=== PATIENT | male | born 1985 | race Two or more races ===

== ENCOUNTER 2023-08-27 16:44 | Inpatient (IN) | payer OTHER, SELFPAY ==
[2023-08-27 17:13] VITALS: BP 115/84; PULSE 59; RESP 17; TEMP 36.3; O2SAT 97
[2023-08-27 17:14] VITALS: BMI 28.8
--- NOTE | 2023-08-27 17:39 | P.CONHOSP_ITS ---
History of Present Illness Data of Consult Service Date: 08/27/23 Requesting physician: Sunil Hu Primary Care Provider: Henna Rodriguez MD HPI Reason for consult: medical H&P 38 year old male with history of htn, asthma, chronic low back pain, polysubstance abuse admitted to adult psychiatry from [facility] ED with consult placed to hospitalist service for medical H&P. The patient is reporting an infection in the R nare. This was not diagnosed by a provider but he feels there is an infection. No pain or draiange. No sinus pain, ST, fevers, cough. Urine drug screen positive for opiates, cocaine, and THC though denies any IV use. Also denies any inhaled use. CBC WNL. BMP and heptic function wnl. EKG showed NSR, rate 65, no st/t wave abnormality. He has no other complaints. [facility] Medical History (Updated 08/27/23 @ 18:26 by LOR Florez) Chronic low back pain Polysubstance abuse Hypertension Asthma Social History Advance Directives: No Advance Directives Information Provided: No Meds Allergies Allergy/AdvReac Type Severity Reaction Status Date / Time No Known Allergies Allergy Verified 08/27/23 17:13 Active Medications: Current Medications Acetaminophen (Acetaminophen 325 Mg Tablet) 650 mg PO Q6H PRN PRN Reason: Headache/Pain Mild Scale (1-3) Al Hydroxide/Mg Hydroxide (Magnesium Hydrox/Alum Hydrox 30 Ml Oral.Susp) 30 ml PO Q6H PRN PRN Reason: Heartburn/Nausea Hydroxyzine HCl (Hydroxyzine Hcl 25 Mg Tablet) 25 mg PO Q6H PRN PRN Reason: Anxiety Magnesium Hydroxide (Milk Of Magnesia 30 Ml Oral.Susp) 30 ml PO DAILY PRN PRN Reason: Constipation Nicotine (Nicotine 21 Mg Patch.Td24) 21 mg TRANSDERMA DAILY PRN PRN Reason: smoking cessation Nicotine Polacrilex (Nicotine Polacrilex 2 Mg Gum) 4 mg BUCCAL Q2H PRN PRN Reason: Nicotine Cravings Olanzapine (Olanzapine 5 Mg Tablet) 5 mg PO TID PRN PRN Reason: agitation Trazodone HCl (Trazodone Hcl 50 Mg Tablet) 50 mg PO BEDTIME MRX1 PRN PRN Reason: Insomnia Physical Exam Vital Signs and Narrative: Vital Signs: Last Vital Signs Temp 97.3 F 08/27/23 17:13 Pulse 59 08/27/23 17:13 Resp 17 08/27/23 17:13 BP 115/84 08/27/23 17:13 Pulse Ox 97 08/27/23 17:13 O2 Del Method Room Air 08/27/23 17:13 BMI result Body Mass Index 28.8 Constitutional - Awake and Alert, No apparent distress Eyes - PERRLA, EOMI Nose - nasal septum deviation. L nare with inflamed turbinates without erythema or drainage Cardiovascular - S1S2, RRR, No edema Respiratory - Normal lung expansion, Normal respiratory effort, No respiratory distress, CTA bilaterally Gastrointestinal - NT / ND; +BS; No rebound or guarding Extremities - no calf tenderness bilaterally, no swelling Musculoskeletal - Normal inspection, normal ROM Skin - Warm/Dry Neurological - Alert & oriented x3, CN II-XII in tact, 5/5 strength BUE and BLE Psychological - Appropriate affect Assessment and Plan (1) Routine medical exam: Status: Acute Plan 38 year old male with history of htn, asthma, chronic low back pain, p olysubstance abuse admitted to adult psychiatry from [facility] ED with consult placed to hospitalist service for medical H&P. #Mood disorder -plan per psychiatry #Mild intermittent asthma -no exacerbation, albuterol prn -Nasal congestion/septal deviation -saline nasal spray, outpt follow up with pcp/ENT (causing loud breathing and suspect snoring) #chronic low back pain -continue gabapentin -tylenol, lidocaine patches #HTN -does not appear pt is currently taking any antihypertensives on review of claim history. Blood pressures well controlled -monitor blood pressures Thank you for allowing me to participate in this consult. Signing off at this time. Please do not hesitate to call for further questions or for any acute medical issues
--- NOTE | 2023-08-27 17:48 | PC.ADMIT ---
Addendum entered by Lauren Rangel RN 08/27/23 18:43: Tox screen positive for opiates, THC, cocaine, methadone, and fentanyl and hospitalist consult completed. Original Note: Pt admitted to from [facility] ED on a CV for SI with intent. Pt has a history of MDD, opioid use disorder, and Bipolar dz. He was evaluated by [facility] reporting he was feeling suicidal but did not disclose plan. He recently broke up with his girlfriend and is now homeless. Affect is flat, he is calm, and cooperative with admission process. Skin check and safety search performed by 2 RN's and unremarkable. Pt denies SI/HI/AVH at present. After he was oriented to the unit and signed releases he opted to go to his room and take a nap. He is primarily [place] speaking but was able to understand what was told to him. 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 Pt received his daily medications, including his daily Methadone 70 mg while at [place] this afternoon. Hospitalist consult ordered and gaetano texted non destructive testing supervisor provider.
[2023-08-27] MEDS: Nicotine Polacrilex 2 MG GUM 4 MG BUCCAL (18:52)
[2023-08-27] MEDS: hydrOXYzine HCL 25 MG TABLET PO (18:52)
[2023-08-27 20:00] VITALS: BP 97/55; PULSE 66; TEMP 37.1; O2SAT 95
[2023-08-28 09:09] VITALS: BP 135/87; PULSE 71; RESP 18; TEMP 36.6; O2SAT 98
[2023-08-28 09:29] LABS: Alanine Aminotransferase 29 U/L (0-40); Albumin Level 4.4 g/dL (3.5-5.0); Alkaline Phosphatase 83 U/L (39-117); Anion Gap 13 (12-20); Aspartate Amino Transferase 18 U/L (5-37); Bilirubin Total 0.4 mg/dL (0.0-1.0); Blood Urea Nitrogen 13 mg/dL (9-16); Carbon Dioxide 28 mmol/L (22-29); Chloride 107 mmol/L (96-108); Cholesterol 144 mg/dL (<200); Creatinine Clr Calc Pharmacy 94.7; Estimated Average Glucose 105 mg/dL; Estimated Glomerular Filt Rate > 60; Glucose Fasting 110 mg/dL (60-99); HDL Cholesterol 35 mg/dL (>40); Hemoglobin A1c % 5.3 % (<6.0); LDL Cholesterol Calculated 89 mg/dL (<100); Sodium 144 mmol/L (135-145); Total Protein 7.2 g/dL (6.5-8.0); Triglycerides 103 mg/dL (<150)
--- NOTE | 2023-08-28 09:43 | HE.PHANOTE ---
Methadone Patient receives from [facility], . Per RAMBO Pat, pt receives 70mg, on 08/24/23 was given take home bottles to last until 08/29/23. Patient last took 08/27/23 at 0937, at [place].
[2023-08-28] MEDS: Escitalopram Oxalate 10 MG TABLET PO (09:50)
[2023-08-28] MEDS: methADONE HCl 20 MG/2 ML ORAL.CONC 70 MG PO (09:50)
[2023-08-28] MEDS: Gabapentin 400 MG CAPSULE 800 MG PO ×3 (09:50→21:35)
[2023-08-28] MEDS: Nicotine Polacrilex 2 MG GUM 4 MG BUCCAL ×2 (10:18→14:25)
--- NOTE | 2023-08-28 10:44 | P.HPPS_ITS ---
HPI Date of Service: 08/28/23 Chief Complaint: MDD Opioid use disorder Sources of Information: patient interviewed, chart reviewed and crisis/core team assessment reviewed HPI Subjective Notes: Meza Warning, Conditional Voluntary and 3 Day Healthcare Proxy: No Guardianship: No Medical Problems Affecting Mental Status: No Narrative: 38 yo male , history of bipolar disorder, polysubstance use disorder, presents to ER with SI, HI, AH, VH, Paranoia. Pt had a plan to run into traffic to suicide when he was not under the influcence of substances. Reports an increase in depressive sx, panic attacks, fearful others are following him. Reports sx started last week. Reports a 2 day relapse on cocaine, heroin, cannabis after being sober for 2 years. Possible precipitants include loss of a one year relationship where he was living with his partner. Pt reports his goals are to get a place to live, to have a ELECTROTYPER to assist him-reports a back injury by history, re-establish med regime and is willing to look at [facility] to help him obtain GED and a job. Pt believes symptoms increased due to current circumstances. Toxicology positive for opiates, fentanyl, benzodiazepines, methadone, cocaine, cannabis Past Psychiatric History: IP: Affirms OP: Affirms-LENORA Mcdaniels PCP: [facility] adult medicine Medical Evaluation Reviewed: Yes [facility] Medical History (Updated 08/28/23 @ 17:38 by Shirlene Ortega APRN) Polysubstance use disorder Bipolar disorder Chronic low back pain Polysubstance abuse Hypertension Asthma Family History: affirms Social History: Born in [place], raised by mother until age 4, then grandmother. Pt is the youngest of 5. He came to [place] in 1999. Pt reports no contact with family of origin. 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 Pt has applied for SSI ~3 years ago and currently has welfare. He is homeless, has 3 children 22,18,14 who are doing well. Legal: Hx A&B, incarceration [id number]~30 days for driving a motorcycle without a license. Substance History: Started at age 11. Attends [employer] 2 years until current admit Hx of treatment with [facility] 01/2022, [facility] 06/2021, [facility] 02/2022 and 06/2022 and [facility] 03/2022, and 07/2022 Trauma History: Affirms by father, mother, brothers, uncles and the trauma of losses Diagnostics Vital Signs (24Hr): Vital Signs - 24 hr 08/27/23 17:13 08/27/23 20:00 08/28/23 09:09 Temperature 97.3 F 98.8 F 97.8 F Pulse Rate 59 66 71 Respiratory Rate 17 18 Blood Pressure 115/84 97/55 L 135/87 Pulse Oximetry 97 95 98 Oxygen Delivery Method Room Air Room Air Room Air BMI result Body Mass Index 28.8 Labs 08/28/23 09:00 Labs: Laboratory Results - last 48 hr 08/28/23 09:00 Sodium 144 Potassium 4.0 Chloride 107 Carbon Dioxide 28 Anion Gap 13 BUN 13 Creatinine 1.07 Estim Creat Clear Calc 94.7 Estimated GFR > 60 Fasting Glucose 110 H Estimat Average Glucose 105 Hemoglobin A1c % 5.3 Calcium 10.0 Total Bilirubin 0.4 AST 18 ALT 29 Alkaline Phosphatase 83 Total Protein 7.2 Albumin 4.4 Triglycerides 103 Cholesterol 144 LDL Cholesterol, Calc 89 HDL Cholesterol 35 L Meds/Allergies Meds Home Medications ?Medication ?Instructions ?Recorded ?Confirmed ?Type albuterol sulfate 90 mcg/actuation 90 mcg inhalation 08/28/23 History aerosol inhaler (Ventolin HFA) escitalopram oxalate 10 mg tablet 1 mg PO DAILY 08/28/23 08/28/23 History gabapentin 800 mg tablet 800 mg PO TID 08/28/23 08/28/23 History melatonin 5 mg disintegrating 5 mg PO 08/28/23 History tablet methadone 10 mg/mL oral concentrate 70 mg PO DAILY 08/28/23 08/28/23 History montelukast 10 mg tablet 10 mg PO 08/28/23 History Allergies Allergies Allergy/AdvReac Type Severity Reaction Status Date / Time No Known Allergies Allergy Verified 08/27/23 17:13 Mental Status Exam Mental Status Exam Patient Appearance: Appropriate Patient Orientation: Person, Place, Time and Situation Level of Consciousness: Alert Patient Behavior: Talkative and Good Eye Contact Mood Description: Apprehensive Affect Description: Apprehensive Patient Cognition Impaired: No Ability to Follow Directions: Good Speech Pattern: Spontaneous Speech Memory Description: Intact Hallucinations: Auditory Delusions: Paranoid Ideation and Present Perceptual Disturbances: Depersonalization and Derealization Thought Process: Rumination Thought Content: positive for Perseveration, positive for Suicidal Ideation and positive for Homicidal Ideation Depressive Symptoms: Feelings of Worthlessness, Unhappiness and Back Pain Abnormal Motor Activity Signs and Symptoms: Restlessness Judgement: Fair Assessment & Plan Assessment & Plan (1) Bipolar disorder: Status: Acute Code(s): F31.9 - Bipolar disorder, unspecified (2) Polysubstance use disorder: Status: Acute Code(s): F19.90 - Other psychoactive substance use, unspecified, uncomplicated Plan 38 yo male with a history of bipolar disorder, polysubstance use disorder, PTSD. Pt presented with relapse of 2 days, SI, HI, AH, paranoia. Pt planning to run into traffic and did so without intoxication. Describes paranoia, feeling people are following him and panic. Plan: Admit, CV 15 minute checks Collateral contacts Pt asks to continue med regime [facility] consult Addiction consult Three day notice to 09/03/23. Patient educated on: therapeutic strategies Informed Consent: understands Reason for continued inpatient stay Substantial Risk for: rapid decompensation Statement Statement: I have reviewed the history and physical and performed a pertinent examination on my patient. No changes have occurred unless specified. If the History and Physical was not performed prior to admission, the Hospitalist's service will be consulted for completing the admission physical. Time Spent With Patient Time: Total time managing care of this patient today ____ minutes.
--- NOTE | 2023-08-28 12:13 | PC.NURSE ---
Pt signed 3-day, up on 09/02. , SW, UR aware
[2023-08-28] MEDS: hydrOXYzine HCL 25 MG TABLET PO ×2 (14:25→21:35)
[2023-08-28] MEDS: OLANZapine 5 MG TABLET PO ×2 (14:25→21:35)
[2023-08-28 20:00] VITALS: BP 134/82; PULSE 76; RESP 18; TEMP 37.3; O2SAT 97
[2023-08-28] MEDS: Montelukast Sodium 10 MG TABLET PO (21:35)
[2023-08-29] MEDS: Gabapentin 400 MG CAPSULE 800 MG PO ×3 (07:59→20:12)
[2023-08-29] MEDS: Escitalopram Oxalate 10 MG TABLET PO (07:59)
[2023-08-29 08:00] VITALS: BP 133/96; PULSE 76; RESP 18; TEMP 36.9; O2SAT 100
[2023-08-29] MEDS: methADONE HCl 20 MG/2 ML ORAL.CONC 70 MG PO (08:00)
[2023-08-29 10:07] VITALS: BMI 29.0
[2023-08-29] MEDS: Nicotine Polacrilex 2 MG GUM 4 MG BUCCAL ×2 (13:02→20:12)
--- NOTE | 2023-08-29 15:32 | P.PNPSI_ITS ---
Subjective Subjective Date of Service: 08/29/23 Reason For Visit: MDD Opioid use disorder Subjective Notes: Conditional Voluntary and 3 Day Healthcare Proxy: No Guardianship: No Medical Problems Affecting Mental Status: No Interim History: Pt reports he is doing well. Denies SI/HI/AH/VH/Paranoia Three day notice to 09/02 Asking for discharge on 09/01. Medication Compliance: Yes Side effects from medications: No Attending Groups: Yes Review of Systems Acute medical concerns: No Medical Review of Systems: unchanged Review of Systems Review of Systems Yes all other systems are reviewed and are negative Mental Status Exam Mental Status Exam Patient Appearance: Appropriate Patient Orientation: Person, Place, Time and Situation Level of Consciousness: Alert Patient Behavior: Talkative and Good Eye Contact Mood Description: Apprehensive Affect Description: Apprehensive Patient Cognition Impaired: No Ability to Follow Directions: Good Speech Pattern: Spontaneous Speech Memory Description: Intact Hallucinations: None Delusions: Not Present Perceptual Disturbances: Depersonalization and Derealization Thought Process: Rumination Thought Content: positive for Perseveration Depressive Symptoms: Back Pain Judgement: Good Diagnostics Vital Signs (24Hr): Vital Signs - 24 hr 08/28/23 20:00 08/29/23 08:00 Temperature 99.1 F 98.4 F Pulse Rate 76 76 Respiratory Rate 18 18 Blood Pressure 134/82 133/96 H Pulse Oximetry 97 100 Oxygen Delivery Method Room Air Room Air BMI result Body Mass Index 29.0 Labs 08/28/23 09:00 Labs: Laboratory Results - last 48 hr 08/28/23 09:00 Sodium 144 Potassium 4.0 Chloride 107 Carbon Dioxide 28 Anion Gap 13 BUN 13 Creatinine 1.07 Estim Creat Clear Calc 94.7 Estimated GFR > 60 Fasting Glucose 110 H Estimat Average Glucose 105 Hemoglobin A1c % 5.3 Calcium 10.0 Total Bilirubin 0.4 AST 18 ALT 29 Alkaline Phosphatase 83 Total Protein 7.2 Albumin 4.4 Triglycerides 103 Cholesterol 144 LDL Cholesterol, Calc 89 HDL Cholesterol 35 L Medications Medications Current Medications Acetaminophen (Acetaminophen 325 Mg Tablet) 650 mg PO Q6H PRN PRN Reason: Headache/Pain Mild Scale (1-3) Al Hydroxide/Mg Hydroxide (Magnesium Hydrox/Alum Hydrox 30 Ml Oral.Susp) 30 ml PO Q6H PRN PRN Reason: Heartburn/Nausea Albuterol Sulfate (Albuterol Sulfate 90 Mcg 8 Gm Inhaler) 2 puff INHALE RQ4H PRN PRN Reason: Wheezing Escitalopram Oxalate (Escitalopram Oxalate 10 Mg Tablet) 10 mg PO DAILY [facility] Last Admin: 08/29/23 07:59 Dose: 10 mg Gabapentin (Gabapentin 400 Mg Capsule) 800 mg PO TID [facility] Last Admin: 08/29/23 14:35 Dose: 800 mg Hydroxyzine HCl (Hydroxyzine Hcl 25 Mg Tablet) 25 mg PO Q6H PRN PRN Reason: Anxiety Last Admin: 08/28/23 21:35 Dose: 25 mg Lidocaine (Lidocaine 4 % Patch Adh..Patch) 1 patch TRANSDERMA DAILY [facility]; Protocol Last Admin: 08/29/23 08:23 Dose: Not Given Magnesium Hydroxide (Milk Of Magnesia 30 Ml Oral.Susp) 30 ml PO DAILY PRN PRN Reason: Constipation Melatonin (Melatonin 3 Mg Tablet) 3 mg PO BEDTIME PRN PRN Reason: Insomnia Methadone HCl (Methadone Hcl 20 Mg/2 Ml Oral.Conc) 70 mg PO DAILY [facility] Last Admin: 08/29/23 08:00 Dose: 70 mg Montelukast Sodium (Montelukast Sodium 10 Mg Tablet) 10 mg PO BEDTIME [facility] Last Admin: 08/28/23 21:35 Dose: 10 mg Nicotine (Nicotine 21 Mg Patch.Td24) 21 mg TRANSDERMA DAILY PRN PRN Reason: smoking cessation Nicotine Polacrilex (Nicotine Polacrilex 2 Mg Gum) 4 mg BUCCAL Q2H PRN PRN Reason: Nicotine Cravings Last Admin: 08/29/23 13:02 Dose: 4 mg Olanzapine (Olanzapine 5 Mg Tablet) 5 mg PO TID PRN PRN Reason: agitation Last Admin: 08/28/23 21:35 Dose: 5 mg Sodium Chloride (Sodium Chloride 0.65 % Nasal 44 Ml Sprbtl) 1 spray NOSTRIL-B Q1H PRN PRN Reason: Nasal Congestion Trazodone HCl (Trazodone Hcl 50 Mg Tablet) 50 mg PO BEDTIME MRX1 PRN PRN Reason: Insomnia Allergies Allergies Allergy/AdvReac Type Severity Reaction Status Date / Time No Known Allergies Allergy Verified 08/27/23 17:13 Assessment & Plan Assessment & Plan (1) Bipolar disorder: Status: Acute Code(s): F31.9 - Bipolar disorder, unspecified (2) Polysubstance use disorder: Status: Acute Code(s): F19.90 - Other psychoactive substance use, unspecified, uncomplicated Plan 38 yo male with a history of bipolar disorder, polysubstance use disorder, PTSD. Pt presented with relapse of 2 days, SI, HI, AH, paranoia. Pt planning to run into traffic and did so without intoxication. Describes paranoia, feeling people are following him and panic. Plan: Admit, CV 15 minute checks Collateral contacts Pt asks to continue med regime [facility] consult Addiction consult Three day notice to 09/03/23. 08/28: Pt discussed discharge request for 09/01. Informed Consent: understands Reason for continued inpatient stay Substantial Risk for: harm to self, harm to others and rapid decompensation Time Spent With Patient Time: Total time managing care of this patient today ____ minutes.
[2023-08-29 19:58] VITALS: BP 161/98; PULSE 63; RESP 17; TEMP 37.2; O2SAT 99
[2023-08-29] MEDS: traZODone HCL 50 MG TABLET PO (20:12)
[2023-08-29] MEDS: OLANZapine 5 MG TABLET PO (20:12)
[2023-08-29] MEDS: Melatonin 3 MG TABLET PO (20:12)
[2023-08-29] MEDS: Montelukast Sodium 10 MG TABLET PO (20:12)
[2023-08-30 08:00] VITALS: BP 138/73; PULSE 66; RESP 16; TEMP 36.5; O2SAT 98
[2023-08-30] MEDS: methADONE HCl 20 MG/2 ML ORAL.CONC 70 MG PO (08:40)
[2023-08-30] MEDS: Gabapentin 400 MG CAPSULE 800 MG PO ×3 (08:41→20:06)
[2023-08-30] MEDS: Escitalopram Oxalate 10 MG TABLET PO (08:41)
[2023-08-30] MEDS: Nicotine Polacrilex 2 MG GUM 4 MG BUCCAL ×2 (10:59→15:03)
--- NOTE | 2023-08-30 17:49 | P.PNPSI_ITS ---
Subjective Subjective Date of Service: 08/30/23 Reason For Visit: MDD Opioid use disorder Subjective Notes: Conditional Voluntary and 3 Day Healthcare Proxy: No Guardianship: No Medical Problems Affecting Mental Status: No Interim History: Pt reports he is well. He is exploring community service offerings that team has suggested He will discharge on 09/01. States he came to the hospital to get a place to live. Medication Compliance: Yes Side effects from medications: No Attending Groups: Intermittent Review of Systems Acute medical concerns: No Medical Review of Systems: unchanged Review of Systems Review of Systems Yes all other systems are reviewed and are negative Mental Status Exam Mental Status Exam Patient Appearance: Appropriate Patient Orientation: Person, Place, Time and Situation Level of Consciousness: Alert Patient Behavior: Talkative and Good Eye Contact Mood Description: Apprehensive Affect Description: Apprehensive Patient Cognition Impaired: No Ability to Follow Directions: Good Speech Pattern: Spontaneous Speech Memory Description: Intact Hallucinations: None Delusions: Not Present Perceptual Disturbances: Depersonalization and Derealization Thought Process: Rumination Thought Content: positive for Perseveration Depressive Symptoms: Back Pain Judgement: Good Diagnostics Vital Signs (24Hr): Vital Signs - 24 hr 08/29/23 19:58 08/30/23 08:00 Temperature 98.9 F 97.7 F Pulse Rate 63 66 Respiratory Rate 17 16 Blood Pressure 161/98 H 138/73 Pulse Oximetry 99 98 Oxygen Delivery Method Room Air Room Air BMI result Body Mass Index 29.0 Labs 08/28/23 09:00 Medications Medications Current Medications Acetaminophen (Acetaminophen 325 Mg Tablet) 650 mg PO Q6H PRN PRN Reason: Headache/Pain Mild Scale (1-3) Al Hydroxide/Mg Hydroxide (Magnesium Hydrox/Alum Hydrox 30 Ml Oral.Susp) 30 ml PO Q6H PRN PRN Reason: Heartburn/Nausea Albuterol Sulfate (Albuterol Sulfate 90 Mcg 8 Gm Inhaler) 2 puff INHALE RQ4H PRN PRN Reason: Wheezing Escitalopram Oxalate (Escitalopram Oxalate 10 Mg Tablet) 10 mg PO DAILY [facility] Last Admin: 08/30/23 08:41 Dose: 10 mg Gabapentin (Gabapentin 400 Mg Capsule) 800 mg PO TID [facility] Last Admin: 08/30/23 15:02 Dose: 800 mg Hydroxyzine HCl (Hydroxyzine Hcl 25 Mg Tablet) 25 mg PO Q6H PRN PRN Reason: Anxiety Last Admin: 08/28/23 21:35 Dose: 25 mg Lidocaine (Lidocaine 4 % Patch Adh..Patch) 1 patch TRANSDERMA DAILY [facility]; Protocol Last Admin: 08/30/23 08:43 Dose: Not Given Magnesium Hydroxide (Milk Of Magnesia 30 Ml Oral.Susp) 30 ml PO DAILY PRN PRN Reason: Constipation Melatonin (Melatonin 3 Mg Tablet) 3 mg PO BEDTIME PRN PRN Reason: Insomnia Last Admin: 08/29/23 20:12 Dose: 3 mg Methadone HCl (Methadone Hcl 20 Mg/2 Ml Oral.Conc) 70 mg PO DAILY [facility] Last Admin: 08/30/23 08:40 Dose: 70 mg Montelukast Sodium (Montelukast Sodium 10 Mg Tablet) 10 mg PO BEDTIME [facility] Last Admin: 08/29/23 20:12 Dose: 10 mg Nicotine (Nicotine 21 Mg Patch.Td24) 21 mg TRANSDERMA DAILY PRN PRN Reason: smoking cessation Nicotine Polacrilex (Nicotine Polacrilex 2 Mg Gum) 4 mg BUCCAL Q2H PRN PRN Reason: Nicotine Cravings Last Admin: 08/30/23 15:03 Dose: 4 mg Olanzapine (Olanzapine 5 Mg Tablet) 5 mg PO TID PRN PRN Reason: agitation Last Admin: 08/29/23 20:12 Dose: 5 mg Sodium Chloride (Sodium Chloride 0.65 % Nasal 44 Ml Sprbtl) 1 spray NOSTRIL-B Q1H PRN PRN Reason: Nasal Congestion Trazodone HCl (Trazodone Hcl 50 Mg Tablet) 50 mg PO BEDTIME MRX1 PRN PRN Reason: Insomnia Last Admin: 08/29/23 20:12 Dose: 50 mg Allergies Allergies Allergy/AdvReac Type Severity Reaction Status Date / Time No Known Allergies Allergy Verified 08/27/23 17:13 Assessment & Plan Assessment & Plan (1) Bipolar disorder: Status: Acute Code(s): F31.9 - Bipolar disorder, unspecified (2) Polysubstance use disorder: Status: Acute Code(s): F19.90 - Other psychoactive substance use, unspecified, uncomplicated Plan 38 yo male with a history of bipolar disorder, polysubstance use disorder, PTSD. Pt presented with relapse of 2 days, SI, HI, AH, paranoia. Pt planning to run into traffic and did so without intoxication. Describes paranoia, feeling people are following him and panic. Plan: Admit, CV 15 minute checks Collateral contacts Pt asks to continue med regime [facility] consult Addiction consult Three day notice to 09/03/23. 08/28: Pt discussed discharge request for 09/01. 08/29: Discharge planned for 09/01. Reason for continued inpatient stay Substantial Risk for: rapid decompensation Time Spent With Patient Time: Total time managing care of this patient today ____ minutes.
[2023-08-30 20:00] VITALS: BP 147/87; PULSE 72; TEMP 36.3; O2SAT 96
[2023-08-30] MEDS: OLANZapine 5 MG TABLET PO (20:05)
[2023-08-30] MEDS: Montelukast Sodium 10 MG TABLET PO (20:05)
[2023-08-30] MEDS: Melatonin 3 MG TABLET PO (20:05)
[2023-08-30] MEDS: traZODone HCL 50 MG TABLET PO (20:06)
[2023-08-31 08:00] VITALS: BP 152/89; PULSE 80; RESP 18; TEMP 36.6; O2SAT 99
--- NOTE | 2023-08-31 08:00 | P.PNPSI_ITS ---
Subjective Subjective Date of Service: 08/31/23 Reason For Visit: MDD Opioid use disorder Interim History: Pt reports he is doing well; no complaints; He is exploring community service offerings that team has suggested He will discharge on 09/01. States he came to the hospital to get a place to live. Review of Systems Review of Systems Chronic back pain Yes all other systems are reviewed and are negative Mental Status Exam Mental Status Exam Patient Appearance: Appropriate Patient Orientation: Person, Place, Time and Situation Level of Consciousness: Alert Patient Behavior: Talkative and Good Eye Contact Mood Description: Apprehensive Affect Description: Apprehensive Patient Cognition Impaired: No Ability to Follow Directions: Good Speech Pattern: Spontaneous Speech Memory Description: Intact Diagnostics Vital Signs (24Hr): Vital Signs - 24 hr 08/30/23 20:00 Temperature 97.4 F Pulse Rate 72 Blood Pressure 147/87 H Pulse Oximetry 96 Oxygen Delivery Method Room Air BMI result Body Mass Index 29.0 Labs 08/28/23 09:00 Medications Medications Current Medications Acetaminophen (Acetaminophen 325 Mg Tablet) 650 mg PO Q6H PRN PRN Reason: Headache/Pain Mild Scale (1-3) Al Hydroxide/Mg Hydroxide (Magnesium Hydrox/Alum Hydrox 30 Ml Oral.Susp) 30 ml PO Q6H PRN PRN Reason: Heartburn/Nausea Albuterol Sulfate (Albuterol Sulfate 90 Mcg 8 Gm Inhaler) 2 puff INHALE RQ4H PRN PRN Reason: Wheezing Escitalopram Oxalate (Escitalopram Oxalate 10 Mg Tablet) 10 mg PO DAILY [facility] Last Admin: 08/30/23 08:41 Dose: 10 mg Gabapentin (Gabapentin 400 Mg Capsule) 800 mg PO TID [facility] Last Admin: 08/30/23 20:06 Dose: 800 mg Hydroxyzine HCl (Hydroxyzine Hcl 25 Mg Tablet) 25 mg PO Q6H PRN PRN Reason: Anxiety Last Admin: 08/28/23 21:35 Dose: 25 mg Lidocaine (Lidocaine 4 % Patch Adh..Patch) 1 patch TRANSDERMA DAILY [facility]; Protocol Last Admin: 08/30/23 08:43 Dose: Not Given Magnesium Hydroxide (Milk Of Magnesia 30 Ml Oral.Susp) 30 ml PO DAILY PRN PRN Reason: Constipation Melatonin (Melatonin 3 Mg Tablet) 3 mg PO BEDTIME PRN PRN Reason: Insomnia Last Admin: 08/30/23 20:05 Dose: 3 mg Methadone HCl (Methadone Hcl 20 Mg/2 Ml Oral.Conc) 70 mg PO DAILY [facility] Last Admin: 08/30/23 08:40 Dose: 70 mg Montelukast Sodium (Montelukast Sodium 10 Mg Tablet) 10 mg PO BEDTIME N[facility] Last Admin: 08/30/23 20:05 Dose: 10 mg Nicotine (Nicotine 21 Mg Patch.Td24) 21 mg TRANSDERMA DAILY PRN PRN Reason: smoking cessation Nicotine Polacrilex (Nicotine Polacrilex 2 Mg Gum) 4 mg BUCCAL Q2H PRN PRN Reason: Nicotine Cravings Last Admin: 08/30/23 15:03 Dose: 4 mg Olanzapine (Olanzapine 5 Mg Tablet) 5 mg PO TID PRN PRN Reason: agitation Last Admin: 08/30/23 20:05 Dose: 5 mg Sodium Chloride (Sodium Chloride 0.65 % Nasal 44 Ml Sprbtl) 1 spray NOSTRIL-B Q1H PRN PRN Reason: Nasal Congestion Trazodone HCl (Trazodone Hcl 50 Mg Tablet) 50 mg PO BEDTIME MRX1 PRN PRN Reason: Insomnia Last Admin: 08/30/23 20:06 Dose: 50 mg Allergies Allergies Allergy/AdvReac Type Severity Reaction Status Date / Time No Known Allergies Allergy Verified 08/27/23 17:13 Assessment & Plan Assessment & Plan (1) Bipolar disorder: Status: Acute Code(s): F31.9 - Bipolar disorder, unspecified (2) Polysubstance use disorder: Status: Acute Code(s): F19.90 - Other psychoactive substance use, unspecified, uncomplicated Plan 38 yo male with a history of bipolar disorder, polysubstance use disorder, PTSD. Pt presented with relapse of 2 days, SI, HI, AH, paranoia. Pt planning to run into traffic and did so without intoxication. Describes paranoia, feeling people are following him and panic. Plan: Admit, CV 15 minute checks Collateral contacts Pt asks to continue med regime [facility] consult Addiction consult Three day notice to 09/03/23. 08/28: Pt discussed discharge request for 08/29: Discharge planned for 08/30 continue tx plan Reason for continued inpatient stay Substantial Risk for: inability to function Time Spent With Patient Time: Total time managing care of this patient today ____ minutes.
[2023-08-31] MEDS: Gabapentin 400 MG CAPSULE 800 MG PO ×3 (08:27→20:24)
[2023-08-31] MEDS: methADONE HCl 20 MG/2 ML ORAL.CONC 70 MG PO (08:27)
[2023-08-31] MEDS: Escitalopram Oxalate 10 MG TABLET PO (08:27)
[2023-08-31 20:00] VITALS: BP 136/100; PULSE 79; TEMP 37.1; O2SAT 98
[2023-08-31] MEDS: Montelukast Sodium 10 MG TABLET PO (20:24)
[2023-08-31] MEDS: traZODone HCL 50 MG TABLET PO ×2 (20:25→22:06)
[2023-09-01] MEDS: Gabapentin 400 MG CAPSULE 800 MG PO ×3 (09:02→20:42)
[2023-09-01] MEDS: methADONE HCl 20 MG/2 ML ORAL.CONC 70 MG PO (09:02)
[2023-09-01] MEDS: Escitalopram Oxalate 10 MG TABLET PO (09:02)
[2023-09-01 09:05] VITALS: BP 136/83; PULSE 90; RESP 18; TEMP 36.5; O2SAT 98
[2023-09-01] MEDS: Nicotine Polacrilex 2 MG GUM 4 MG BUCCAL ×2 (10:19→15:32)
--- NOTE | 2023-09-01 10:22 | HO.PSYCHPN ---
Subjective Subjective Date of Service: 09/01/23 Reason For Visit: MDD Opioid use disorder Interim History: Pt reports he is doing well; no complaints; He is exploring community service offerings that team has suggested He will discharge on 09/01. He reports he is ready for d/c . States he came to the hospital to get a place to live. Review of Systems Review of Systems Chronic back pain Yes all other systems are reviewed and are negative Mental Status Exam Mental Status Exam Patient Appearance: Appropriate Patient Orientation: Person, Place, Time and Situation Level of Consciousness: Alert Patient Behavior: Talkative and Good Eye Contact Mood Description: Apprehensive Affect Description: Apprehensive Patient Cognition Impaired: No Ability to Follow Directions: Good Speech Pattern: Spontaneous Speech Memory Description: Intact Thought Process: Intact and Goal Oriented Thought Content: positive for Intact and positive for Goal Oriented Judgement: Fair Diagnostics Vital Signs (24Hr): Vital Signs - 24 hr 08/31/23 20:00 09/01/23 09:05 Temperature 98.8 F 97.7 F Pulse Rate 79 90 Respiratory Rate 18 Blood Pressure 136/100 H 136/83 Pulse Oximetry 98 98 Oxygen Delivery Method Room Air Room Air BMI result Body Mass Index 29.0 Labs 08/28/23 09:00 Medications Medications Current Medications Acetaminophen (Acetaminophen 325 Mg Tablet) 650 mg PO Q6H PRN PRN Reason: Headache/Pain Mild Scale (1-3) Al Hydroxide/Mg Hydroxide (Magnesium Hydrox/Alum Hydrox 30 Ml Oral.Susp) 30 ml PO Q6H PRN PRN Reason: Heartburn/Nausea Albuterol Sulfate (Albuterol Sulfate 90 Mcg 8 Gm Inhaler) 2 puff INHALE RQ4H PRN PRN Reason: Wheezing Escitalopram Oxalate (Escitalopram Oxalate 10 Mg Tablet) 10 mg PO DAILY [facility] Last Admin: 09/01/23 09:02 Dose: 10 mg Gabapentin (Gabapentin 400 Mg Capsule) 800 mg PO TID [facility] Last Admin: 09/01/23 09:02 Dose: 800 mg Hydroxyzine HCl (Hydroxyzine Hcl 25 Mg Tablet) 25 mg PO Q6H PRN PRN Reason: Anxiety Last Admin: 08/28/23 21:35 Dose: 25 mg Lidocaine (Lidocaine 4 % Patch Adh..Patch) 1 patch TRANSDERMA DAILY [facility]; Protocol Last Admin: 09/01/23 09:03 Dose: Not Given Magnesium Hydroxide (Milk Of Magnesia 30 Ml Oral.Susp) 30 ml PO DAILY PRN PRN Reason: Constipation Melatonin (Melatonin 3 Mg Tablet) 3 mg PO BEDTIME PRN PRN Reason: Insomnia Last Admin: 08/30/23 20:05 Dose: 3 mg Methadone HCl (Methadone Hcl 20 Mg/2 Ml Oral.Conc) 70 mg PO DAILY [facility] Last Admin: 09/01/23 09:02 Dose: 70 mg Montelukast Sodium (Montelukast Sodium 10 Mg Tablet) 10 mg PO BEDTIME [facility] Last Admin: 08/31/23 20:24 Dose: 10 mg Nicotine (Nicotine 21 Mg Patch.Td24) 21 mg TRANSDERMA DAILY PRN PRN Reason: smoking cessation Nicotine Polacrilex (Nicotine Polacrilex 2 Mg Gum) 4 mg BUCCAL Q2H PRN PRN Reason: Nicotine Cravings Last Admin: 09/01/23 10:19 Dose: 4 mg Olanzapine (Olanzapine 5 Mg Tablet) 5 mg PO TID PRN PRN Reason: agitation Last Admin: 08/30/23 20:05 Dose: 5 mg Sodium Chloride (Sodium Chloride 0.65 % Nasal 44 Ml Sprbtl) 1 spray NOSTRIL-B Q1H PRN PRN Reason: Nasal Congestion Trazodone HCl (Trazodone Hcl 50 Mg Tablet) 50 mg PO BEDTIME MRX1 PRN PRN Reason: Insomnia Last Admin: 08/31/23 22:06 Dose: 50 mg Allergies Allergies Allergy/AdvReac Type Severity Reaction Status Date / Time No Known Allergies Allergy Verified 08/27/23 17:13 Assessment & Plan Assessment & Plan (1) Bipolar disorder: Status: Acute Code(s): F31.9 - Bipolar disorder, unspecified (2) Polysubstance use disorder: Status: Acute Code(s): F19.90 - Other psychoactive substance use, unspecified, uncomplicated Plan 38 yo male with a history of bipolar disorder, polysubstance use disorder, PTSD. Pt presented with relapse of 2 days, SI, HI, AH, paranoia. Pt planning to run into traffic and did so without intoxication. Describes paranoia, feeling people are following him and panic. Plan: Admit, CV 15 minute checks Collateral contacts Pt asks to continue med regime [facility] consult Addiction consult Three day notice to 09/03/23. 08/28: Pt discussed discharge request for 09/01. 08/29: Discharge planned for 09/01. 08/30 continue tx plan 08/31 pt to be dc tomorrow Reason for continued inpatient stay Substantial Risk for: inability to function Time Spent With Patient Time: Total time managing care of this patient today ____ minutes.
[2023-09-01 20:00] VITALS: BP 137/92; PULSE 93; TEMP 36.9; O2SAT 98
[2023-09-01] MEDS: OLANZapine 5 MG TABLET PO (20:42)
[2023-09-01] MEDS: Melatonin 3 MG TABLET PO (20:43)
[2023-09-01] MEDS: Montelukast Sodium 10 MG TABLET PO (20:43)
[2023-09-01] MEDS: traZODone HCL 50 MG TABLET PO (20:46)
[2023-09-02 08:00] VITALS: BP 108/59; PULSE 74; RESP 18; TEMP 36.6; O2SAT 98
[2023-09-02] MEDS: methADONE HCl 20 MG/2 ML ORAL.CONC 70 MG PO (08:09)
[2023-09-02] MEDS: Escitalopram Oxalate 10 MG TABLET PO (08:09)
[2023-09-02] MEDS: Gabapentin 400 MG CAPSULE 800 MG PO (08:09)
[2023-09-02] MEDS: Nicotine Polacrilex 2 MG GUM 4 MG BUCCAL (08:26)
--- NOTE | 2023-09-26 14:13 | P.DS_ITS ---
DS: Providers Provider Date of Service: 09/02/23 Date of admission: 08/27/23 16:44 Date of discharge: 09/02/23 Primary care physician: Henna Rodriguez MD Admitting clinician: Shirlene Ortega Attending physician on admission: Maurice Bryant Consults: 08/27/23 17:16 Consult to Hospitalist Routine Comment: Consulting Provider: Hospitalist Reason For Exam: admission physical Attending physician on discharge: Maurice Bryant Discharging clinician: Shirlene Ortega DS: Diagnosis Discharge Diagnosis (1) Bipolar disorder: Status: Acute (2) Polysubstance use disorder: Status: Acute DS: Medications Discharge Medications Home Medications: Home Medications ?Medication ?Instructions ?Recorded ?Confirmed methadone 10 mg/mL oral concentrate 70 mg PO DAILY 08/28/23 08/28/23 Previous Rx's ?Medication ?Instructions ?Recorded albuterol sulfate 90 mcg/actuation 90 mcg inhalation DAILY PRN wheeze 09/01/23 aerosol inhaler (Ventolin HFA) #1 inhaler gabapentin 800 mg tablet 800 mg PO TID #21 tabs 09/01/23 melatonin 5 mg disintegrating 5 mg PO BEDTIME PRN sleep #30 tabs 09/01/23 tablet montelukast 10 mg tablet 10 mg PO DAILY #30 tabs 09/01/23 nicotine (polacrilex) 2 mg gum 4 mg buccal Q2H PRN Nicotine 09/01/23 Cravings #60 ea trazodone 50 mg tablet 50 mg PO BEDTIME MRX1 PRN Insomnia 09/01/23 #14 tabs escitalopram oxalate 10 mg tablet 10 mg PO DAILY #30 tabs 09/03/23 Mental Status Exam Mental Status Exam Patient Appearance: Appropriate Patient Orientation: Person, Place, Time and Situation Level of Consciousness: Alert Patient Behavior: Talkative and Good Eye Contact Mood Description: Apprehensive Affect Description: Apprehensive Patient Cognition Impaired: No Ability to Follow Directions: Good Speech Pattern: Spontaneous Speech Memory Description: Intact Thought Process: Intact and Goal Oriented Thought Content: positive for Intact and positive for Goal Oriented Judgement: Fair DS: Summary Hospital Course Hospital Course: Admission to adult psychiatry for exacerbation of bipolar disorder and polysubstance use disorder in the context of a situational crisis. Presented with a reported 48 hour relapse, with SI and sx of psychosis. Reports a loss of relationship and as a result housing. Medications were evaluated and dosages re-established. Once stabilized, pt signed a three day notice of intent and will return to out patient providers. Residential referrals were placed for pt in addition. Time spent discussing smoking cessation with patient: 3 to 10 minutes Status at Discharge Functional status at discharge: independent ambulation Overall status at discharge: patient is progressing back to baseline Time Spent with Patient Time attestation: Total time managing care of this patient today ____ minutes. Time spent: Less than 30 minutes Discharge Plan Discharge Anticipated Discharge Date/Time: 09/02/23 12:00 Patient Disposition: Residential Discharge Diagnosis: Bipolar Disorder Polysubstance Use Disorder Referrals: [facility] [Other] [facility] [Other] [facility] [Other] [facility] [Other] Henna Rodriguez MD [Primary Care Provider] - (Office will call you to schedule a follow up appointment) Discharge Medications: New trazodone 50 mg Tablet 50 mg PO BEDTIME MRX1 PRN (Reason: Insomnia) Qty: 14 4RF nicotine (polacrilex) 2 mg Gum 4 mg buccal Q2H PRN (Reason: Nicotine Cravings) Qty: 60 0RF escitalopram oxalate 10 mg tablet 10 mg PO DAILY Qty: 30 0RF Continued methadone 10 mg/mL Concentrate 70 mg PO DAILY gabapentin 800 mg tablet 800 mg PO TID Qty: 21 4RF Changed montelukast 10 mg tablet 10 mg PO DAILY Qty: 30 0RF albuterol sulfate [Ventolin HFA] 90 mcg/actuation HFA aerosol inhaler 90 mcg INHALATION DAILY PRN (Reason: wheeze) Qty: 1 0RF melatonin 5 mg tablet,disintegrating 5 mg PO BEDTIME PRN (Reason: sleep) Qty: 30 0RF Discontinued escitalopram oxalate 10 mg tablet 1 mg PO DAILY Discharge Orders: Discharge Order (Routine); Ordered 09/02/23 Ordered By: Shirlene Ortega Diet: Advance to usual diet Activity on Discharge: As tolerated Stand Alone Forms: Patient Portal Discharge page, Community Support Print Language: Malay Care Plan Goals: Mood and Behavioral Stabilization Sobriety Health Concerns: Mood and Behavioral Stabilization Sobriety Plan of Treatment: Contact resources provided which are listed above Take medications as directed Assessment: Discharge on a three day notice of intent. Discharge Date/Time: 09/02/23 09:57
== END 2023-09-02 09:57 | disposition home or self-care (01) | DRG 753 ==
PROVIDERS: Admitting Provider Psychiatry & Neurology Psychiatry; PCP Internal Medicine; Visit Provider Clinical Nurse Specialist Psychiatric/Mental Health, Adult
DX: F31.9 Bipolar disorder, unspecified (principal); R45.851 Suicidal ideations; F11.20 Opioid dependence, uncomplicated; F17.210 Nicotine dependence, cigarettes, uncomplicated; J45.20 Mild intermittent asthma, uncomplicated; J34.2 Deviated nasal septum; I10 Essential (primary) hypertension; F19.10 Other psychoactive substance abuse, uncomplicated; M54.50 Low back pain, unspecified; G89.29 Other chronic pain; Z71.6 Tobacco abuse counseling; Z79.899 Other long term (current) drug therapy
CPT/HCPCS: 36415; 80053; 80061; 83036

== ENCOUNTER → 2023-08-27 16:44 | Outpatient (BNV) | payer OTHER, SELFPAY | PROVIDERS: Admitting Provider Psychiatry & Neurology Psychiatry; PCP Internal Medicine; Visit Provider Physician Assistant | DX: F39 Unspecified mood [affective] disorder (principal); R09.81 Nasal congestion; J45.20 Mild intermittent asthma, uncomplicated; I10 Essential (primary) hypertension; M54.50 Low back pain, unspecified | CPT/HCPCS: 99222 ==

== ENCOUNTER → 2023-08-27 16:44 | Outpatient (BNV) | payer OTHER, SELFPAY | PROVIDERS: Admitting Provider Psychiatry & Neurology Psychiatry; PCP Internal Medicine; Visit Provider Clinical Nurse Specialist Psychiatric/Mental Health, Adult | DX: F31.4 Bipolar disorder, current episode depressed, severe, without psychotic features (principal); F19.90 Other psychoactive substance use, unspecified, uncomplicated | CPT/HCPCS: 99231; 99232 ==